=== PATIENT | male | born 1965 | race Caucasian/White ===

== ENCOUNTER → 2020-12-16 | Outpatient (CLI) | payer OTHER ==
--- NOTE | 2020-12-16 17:46 | CTL ---
EXAMINATION TYPE: CT Low Dose Lung DATE OF EXAM ORDERED: 12/16/2020 HISTORY: 55-year-old male Z87.891, personal history of tobacco use. Lung cancer screening CT DLP: 66.[address] CTDI: 1.8 mGy Automated exposure control for dose reduction was used. SCREENING VISIT: Baseline COMPARISON: None TECHNIQUE: Low dose computed tomography scan was performed through the chest at 1 mm thick sections a nd coronal/sagittal reconstructions. Additional coronal MIP reconstruction was performed. CT DIAGNOSTIC QUALITY: Satisfactory FINDINGS: Heart normal size without pericardial effusion. Aorta normal caliber with conventional arch vessel branching anatomy. Borderline size precarinal lymph node and 1.0 cm. Otherwise, no thoracic lymphadenopathy identified a llowing for noncontrast technique. Moderate paraseptal and centrilobular emphysema. Right greater than left biapical pleural parenchymal scarring. The scarring is confluence in irregular extending down to the medial aspect of the right u pper lobe. Moderate diffuse bronchial wall thickening. Otherwise, no suspicious pulmonary nodule elsewhere within the lungs. No consolidation or pleural eff usion. Visualized upper abdomen shows no gross abnormality. Bones: No osseous destructive process. IMPRESSION: 1. BI-RADS 3, probably benign. Asymmetric right greater than left biapical pleural parenchymal scarri ng. Opacity is more confluent and irregular on the right extending down into the medial aspect of the right upper lobe. All of this density is suspected to represent scarring. Six-month follow-up to exc lude an underlying developing mass. 2. COPD with moderate emphysema. CT LUNG RAD AND CT CHEST RECOMMENDATION: Lung-Rad 3 Probably Benign: 6 month follow-up LDCT.
== END | disposition home or self-care (01) ==
LOC: RADCTMAIN 15:36
DX: Z12.2 Encounter for screening for malignant neoplasm of respiratory organs (principal); J43.9 Emphysema, unspecified; R91.8 Other nonspecific abnormal finding of lung field; Z87.891 Personal history of nicotine dependence
CPT/HCPCS: 71271

== ENCOUNTER 2023-05-14 21:20 | Emergency (ER) | payer OTHER ==
[2023-05-15 02:24] LABS: Amphetamine Screen,Urine Not Detected (NotDetected); Barbiturate Screen,Urine Not Detected (NotDetected); Benzodiazepines Screen,Urine Not Detected (NotDetected); Cocaine Screen,Urine Not Detected (NotDetected); Methadone Screen, Urine Not Detected (NotDetected); Opiate Screen,Urine Not Detected (NotDetected); Oxycodone Screen, Urine Not Detected (NotDetected); Phencyclidine Screen,Urine Not Detected (NotDetected); Tricyclic Antidepressant,Urine Not Detected (NotDetected); Urn Cannabinoid Scrn Not Detected (NotDetected)
--- NOTE | 2023-05-15 02:42 | ED ---
Psych HPI - General Source: patient, EMS Mode of arrival: EMS <Kacie Oliva - Last Filed: 05/15/23 06:27> <Gómez Erickson - Last Filed: 05/16/23 14:19> - General Chief Complaint: Psychiatric Symptoms Stated Complaint: Mental Health Time Seen by Provider: 05/14/23 21:21 - History of Present Illness Initial Comments: 58-year-old male presents to the emergency department with report of depression. States that he has a bad relationship with his . Reports that he was charged with domestic violence and there has been a no contact order that was in place. He had been in group home for 20 days. Recently the patient was released in the no contact order was lifted. His was at the house tonight and the 2 were supposed to be reconciling the relationship. He found out that his is cheating on him and he became very angry. States that he wanted to destroy everything in the house. He denies assaulting her. States he wanted to leave the house via EMS before anything else occurred. He denies suicidal ideations. Denies drug or alcohol use today. Does admit to smoking marijuana and drinks once per week. He admits to being hospitalized once for his mental health back in September. At that time he had been suicidal. Patient denies hallucinations. No other alleviating, precipitating modifying factors (Kacie Oliva) - Related Data Home Medications Medication Instructions Recorded Confirmed Ketorolac 0.5% Ophth Soln [Acular 1 drops RIGHT EYE BID 05/15/23 05/15/23 0.5%] prednisoLONE ACETATE 1% OPHTH 1 drops RIGHT EYE BID 05/15/23 05/15/23 [Pred Forte 1%] Previous Rx's Medication Instructions Recorded Sertraline [Zoloft] 50 mg PO DAILY 3 Days #3 tab 05/16/23 Allergies Allergy/AdvReac Type Severity Reaction Status Date / Time No Known Allergies Allergy Verified 05/15/23 08:55 Review of Systems ROS Other: All systems not noted in ROS Statement are negative. <Kacie Oliva - Last Filed: 05/15/23 06:27> ROS Other: All systems not noted in ROS Statement are negative. <Gómez Erickson - Last Filed: 05/16/23 14:19> ROS Statement: Those systems with pertinent positive or pertinent negative responses have been documented in the HPI. Past Medical History Additional Past Medical History / Comment(s): PT STATES HAD PET SCAN ABOUT 4 YEARS AGO THAT SHOWED AREA IN LUNG, AND THEN FOLLOW UP CT SCANS THAT HAVE BEEN ABN. History of Any Multi-Drug Resistant Organisms: None Reported Past Surgical History: Hernia Repair Additional Past Surgical History / Comment(s): COLONOSCOPY. EGD Past Anesthesia/Blood Transfusion Reactions: No Reported Reaction Past Psychological History: Anxiety Smoking Status: Current every day smoker - Past Family History Mother Family Medical History: Unable to Obtain Additional Family Medical History / Comment(s): PT STATES FAMILY HX OF CANCER, NOT SURE WHICH FAMILY MEMBERS <Kacie Oliva - Last Filed: 05/15/23 06:27> General Exam Limitations: no limitations General appearance: alert, in no apparent distress Head exam: Present: atraumatic, normocephalic, normal inspection Eye exam: Present: normal appearance, PERRL, EOMI. Absent: scleral icterus, conjunctival injection, periorbital swelling ENT exam: Present: normal exam, mucous membranes moist Neck exam: Present: normal inspection. Absent: tenderness, meningismus, lymphadenopathy Respiratory exam: Present: normal lung sounds bilaterally. Absent: respiratory distress, wheezes, rales, rhonchi, stridor Cardiovascular Exam: Present: regular rate, normal rhythm, normal heart sounds. Absent: systolic murmur, diastolic murmur, rubs, gallop, clicks GI/Abdominal exam: Present: soft, normal bowel sounds. Absent: distended, tenderness, guarding, rebound, rigid Extremities exam: Present: normal inspection, full ROM, normal capillary refill. Absent: tenderness, pedal edema, joint swelling, calf tenderness Back exam: Present: normal inspection Neurological exam: Present: alert, oriented X3, CN II-XII intact Psychiatric exam: Present: normal affect, normal mood Skin exam: Present: warm, dry, intact, normal color. Absent: rash <Kacie Oliva Desi Whitmore Last Filed: 05/15/23 06:27> Course Vital Signs 05/14/23 05/15/23 05/15/23 21:21 02:00 18:06 Temperature 98 F 97.9 F Pulse Rate 85 70 59 L Respiratory 18 18 16 Rate Blood Pressure 125/82 122/70 102/69 O2 Sat by Pulse 96 98 94 L Oximetry 05/16/23 05/16/23 09:18 12:00 Temperature 98.2 F 98.1 F Pulse Rate 61 76 Respiratory 20 18 Rate Blood Pressure 102/69 119/74 O2 Sat by Pulse 95 98 Oximetry Medical Decision Making - Lab Data Result diagrams: 05/15/23 06:09 <Kacie Oliva - Last Filed: 05/15/23 06:27> - Lab Data Result diagrams: 05/15/23 06:09 05/15/23 06:09 <Gómez Erickson - Last Filed: 05/16/23 14:19> - Medical Decision Making Was pt. sent in by a medical professional or institution (, PA, BATTERY CONTAINER FINISHING HAND, urgent care, hospital, or care home...) When possible be specific @ -No Did you speak to anyone other than the patient for history (EMS, parent, family, police, friend...)? What history was obtained from this source @ -Spoke with EMS Did you review nursing and triage notes (agree or disagree)? Why? @ -I reviewed and agree with nursing and triage notes Were old charts reviewed (outside hosp., previous admission, EMS record, old EKG, old radiological studies, urgent care reports/EKG's, care home records)? Report findings @ -No old charts were reviewed Differential Diagnosis (chest pain, altered mental status, abdominal pain women, abdominal pain men, vaginal bleeding, weakness, fever, dyspnea, syncope, headache, dizziness, GI bleed, back pain, seizure, CVA, palpatations, mental health, musculoskeletal)? @ -Differential Mental Health Depression, anxiety, bipolar, psychosis, schizophrenia, borderline personality, situational depression, adjustment disorder, behavioral disorder, brain tumor, malingering, substance abuse, encephalopathy, medication reaction, dementia, hypothyroidism, degenerative neurologic disorder, lupus.... This is not meant to be all-inclusive list EKG interpreted by me (3pts min.). @ -Yes and demonstrate sinus rhythm with rate 64. NM interval 121. QRS 93. QTC of 394. No acute ST segment elevations or depressions X-rays interpreted by me (1pt min.). @ -None done CT interpreted by me (1pt min.). @ -None done U/S interpreted by me (1pt. min.). @ -None done What testing was considered but not performed or refused? (CT, X-rays, U/S, labs)? Why? @ -None What meds were considered but not given or refused? Why? @ -None Did you discuss the management of the patient with other professionals (professionals i.e. , PA, BATTERY CONTAINER FINISHING HAND, lab, RT, psych nurse, social media assistant, ethernet network architect, teacher, compliance officer, welfare case worker)? Give summary @ -Spoke with EPS in regards to the patient's symptoms Was smoking cessation discussed for >3mins.? @ -No Was critical care preformed (if so, how long)? @ -No Were there social determinants of health that impacted care today? How? (Homelessness, low income, unemployed, alcoholism, drug addiction, transportation, low edu. Level, literacy, decrease access to med. care, group home, rehab)? @ -Homelessness Was there de-escalation of care discussed even if they declined (Discuss DNR or withdrawal of care, Hospice)? DNR status @ -No What co-morbidities impacted this encounter? (DM, HTN, Smoking, COPD, CAD, Cancer, CVA, ARF, Chemo, Hep., AIDS, mental health diagnosis, sleep apnea, morbid obesity)? @ -Depression Was patient admitted / discharged? Hospital course, mention meds given and route, prescriptions, significant lab abnormalities, going to OR and other pertinent info. @ -Upon arrival patient was placed into room 9. Thorough history and physical exam was performed. Patient requires EPS evaluation. EPS does evaluate the patient and feels hospitalizations most appropriate due to hopelessness, depression. Certification as filled out by myself. Patient pending transfer at this time Undiagnosed new problem with uncertain prognosis? @ -No Drug Therapy requiring intensive monitoring for toxicity (Heparin, Nitro, Insulin, Cardizem)? @ -No Were any procedures done? @ -No Diagnosis/symptom? @ -acute depression Acute, or Chronic, or Acute on Chronic? @ -acute Uncomplicated (without systemic symptoms) or Complicated (systemic symptoms)? @ -complicated Side effects of treatment? @ -No Exacerbation, Progression, or Severe Exacerbation? @ -No Poses a threat to life or bodily function? How? (Chest pain, [place], [place], pneumonia, PE, COPD, DKA, ARF, appy, cholecystitis, CVA, Diverticulitis, Homicidal, Suicidal, threat to staff... and all critical care pts) @ -No (Kacie Oliva) Patient was originally evaluated by EPS and determined that he will be transferred for psych. However he says reviewed today by psychiatry as well as EPS. A negative surgical was completed. They believe patient is safe for discharge home. Not a danger to himself or others. I believe this is reasonable. He will be given a prescription for Zoloft. Dr. Grigsby psychiatry evaluated the patient at bedside and was in agreement with this plan. Diagnosis/symptom? @ -Depression Acute, or Chronic, or Acute on Chronic? @ -Acute Uncomplicated (without systemic symptoms) or Complicated (systemic symptoms)? @ -Uncomplicated Side effects of treatment? @ -none Exacerbation, Progression, or Severe Exacerbation] @ -no Poses a threat to life or bodily function? @ -Unlikely (Gómez Erickson) - Lab Data Lab Results 05/15/23 05/15/23 05/15/23 Range/Units 01:40 06:09 06:09 WBC 8.9 (3.8-10.6) k/uL RBC 4.40 (4.30-5.90) m/uL Hgb 14.0 (13.0-17.5) gm/dL Hct 41.9 (39.0-53.0) % MCV 95.3 (80.0-100.0) fL MCH 31.7 (25.0-35.0) pg MCHC 33.3 (31.0-37.0) g/dL RDW 13.9 (11.5-15.5) % Plt Count 266 (150-450) k/uL MPV 7.0 Neutrophils % 61 % Lymphocytes % 28 % Monocytes % 6 % Eosinophils % 3 % Basophils % 0 % Neutrophils # 5.4 (1.3-7.7) k/uL Lymphocytes # 2.5 (1.0-4.8) k/uL Monocytes # 0.5 (0-1.0) k/uL Eosinophils # 0.2 (0-0.7) k/uL Basophils # 0.0 (0-0.2) k/uL Sodium 137 (137-145) mmol/L Potassium 4.7 (3.5-5.1) mmol/L Chloride 106 (98-107) mmol/L Carbon Dioxide 24 (22-30) mmol/L Anion Gap 7 mmol/L BUN 16 (9-20) mg/dL Creatinine 0.85 (0.66-1.25) mg/dL Est GFR (CKD-EPI)AfAm >90 (>60 ml/min/1.73 sqM) Est GFR (CKD-EPI)NonAf >90 (>60 ml/min/1.73 sqM) Glucose 100 H (74-99) mg/dL Calcium 9.3 (8.4-10.2) mg/dL Total Bilirubin 0.6 (0.2-1.3) mg/dL AST 25 (17-59) U/L ALT 15 (4-49) U/L Alkaline Phosphatase 74 (38-126) U/L Total Protein 7.4 (6.3-8.2) g/dL Albumin 3.9 (3.5-5.0) g/dL Urine Opiates Screen Not Detected (NotDetected) Ur Oxycodone Screen Not Detected (NotDetected) Urine Methadone Screen Not Detected (NotDetected) Ur Propoxyphene Screen Not Detected (NotDetected) Ur Barbiturates Screen Not Detected (NotDetected) U Tricyclic Antidepress Not Detected (NotDetected) Ur Phencyclidine Scrn Not Detected (NotDetected) Ur Amphetamines Screen Not Detected (NotDetected) U Methamphetamines Scrn Not Detected (NotDetected) U Benzodiazepines Scrn Not Detected (NotDetected) Urine Cocaine Screen Not Detected (NotDetected) U Marijuana (THC) Screen Not Detected (NotDetected) Serum Alcohol <10 mg/dL Coronavirus (PCR) (Not Detectd) 05/15/23 Range/Units 06:09 WBC (3.8-10.6) k/uL RBC (4.30-5.90) m/uL Hgb (13.0-17.5) gm/dL Hct (39.0-53.0) % MCV (80.0-100.0) fL MCH (25.0-35.0) pg MCHC (31.0-37.0) g/dL RDW (11.5-15.5) % Plt Count (150-450) k/uL MPV Neutrophils % % Lymphocytes % % Monocytes % % Eosinophils % % Basophils % % Neutrophils # (1.3-7.7) k/uL Lymphocytes # (1.0-4.8) k/uL Monocytes # (0-1.0) k/uL Eosinophils # (0-0.7) k/uL Basophils # (0-0.2) k/uL Sodium (137-145) mmol/L Potassium (3.5-5.1) mmol/L Chloride (98-107) mmol/L Carbon Dioxide (22-30) mmol/L Anion Gap mmol/L BUN (9-20) mg/dL Creatinine (0.66-1.25) mg/dL Est GFR (CKD-EPI)AfAm (>60 ml/min/1.73 sqM) Est GFR (CKD-EPI)NonAf (>60 ml/min/1.73 sqM) Glucose (74-99) mg/dL Calcium (8.4-10.2) mg/dL Total Bilirubin (0.2-1.3) mg/dL AST (17-59) U/L ALT (4-49) U/L Alkaline Phosphatase (38-126) U/L Total Protein (6.3-8.2) g/dL Albumin (3.5-5.0) g/dL Urine Opiates Screen (NotDetected) Ur Oxycodone Screen (NotDetected) Urine Methadone Screen (NotDetected) Ur Propoxyphene Screen (NotDetected) Ur Barbiturates Screen (NotDetected) U Tricyclic Antidepress (NotDetected) Ur Phencyclidine Scrn (NotDetected) Ur Amphetamines Screen (NotDetected) U Methamphetamines Scrn (NotDetected) U Benzodiazepines Scrn (NotDetected) Urine Cocaine Screen (NotDetected) U Marijuana (THC) Screen (NotDetected) Serum Alcohol mg/dL Coronavirus (PCR) Not Detected (Not Detectd) Disposition Is patient prescribed a controlled substance at d/c from ED?: No Time of Disposition: 05:40 <Kacie Oliva - Last Filed: 05/15/23 06:27> Is patient prescribed a controlled substance at d/c from ED?: No Time of Disposition: 14:18 <Gómez Erickson - Last Filed: 05/16/23 14:19> Clinical Impression: Depression Disposition: HOME SELF-CARE Condition: Good Prescriptions: Sertraline [Zoloft] 50 mg PO DAILY 3 Days #3 tab Referrals: [facility],Clinic [Primary Care Provider] - 1-2 days
[2023-05-15 06:16] LABS: Basophils % (A) 0 %; Eosinophils # (A) 0.2 k/uL (0-0.7); Eosinophils % (A) 3 %; HCT 41.9 % (39.0-53.0); Lymphocytes # (A) 2.5 k/uL (1.0-4.8); Lymphocytes % (A) 28 %; MCH 31.7 pg (25.0-35.0); MCHC 33.3 g/dL (31.0-37.0); MCV 95.3 fL (80.0-100.0); Monocytes # (A) 0.5 k/uL (0-1.0); Monocytes % (A) 6 %; Neutrophils # (A) 5.4 k/uL (1.3-7.7); Neutrophils % (A) 61 %; Platelet Count 266 k/uL (150-450); RDW 13.9 % (11.5-15.5); WBC 8.9 k/uL (3.8-10.6)
[2023-05-15 06:45] LABS: ALT 15 U/L (4-49); AST 25 U/L (17-59); African American GFR (CKD) >90 (>60 ml/min/1.73 sqM); Albumin 3.9 g/dL (3.5-5.0); Alcohol <10 mg/dL; Alkaline Phosphatase 74 U/L (38-126); Anion Gap 7 mmol/L; Blood Urea Nitrogen 16 mg/dL (9-20); Calcium 9.3 mg/dL (8.4-10.2); Carbon Dioxide 24 mmol/L (22-30); Chloride 106 mmol/L (98-107); Glucose 100 mg/dL (74-99); Non-African American GFR(CKD) >90 (>60 ml/min/1.73 sqM); Potassium 4.7 mmol/L (3.5-5.1); Sodium 137 mmol/L (137-145); Total Bilirubin 0.6 mg/dL (0.2-1.3); Total Protein 7.4 g/dL (6.3-8.2)
[2023-05-15] MEDS: KETOROLAC 0.5% OPHTH DROPS 5 ML BTL RIGHT EYE SCH (20:05)
[2023-05-15] MEDS: prednisoLONE ACETATE 1% OPHTH DROPS 5 ML BTL RIGHT EYE SCH (20:08)
[2023-05-16] MEDS: KETOROLAC 0.5% OPHTH DROPS 5 ML BTL RIGHT EYE SCH (09:20)
[2023-05-16] MEDS: prednisoLONE ACETATE 1% OPHTH DROPS 5 ML BTL RIGHT EYE SCH (09:21)
[2023-05-16 12:18] VITALS: RESP 18; TEMP 98.1
[2023-05-16] MEDS ORDERED: SERTRALINE 50 MG TAB PO SCH (14:05)
--- NOTE | 2023-05-16 14:55 | P.CN ---
Psychiatric Consult - . Consult date: 05/16/23 Consult:: 05/16/23 13:27 IDENTIFYING DATA: This patient is a [] 58-year-old male, , with a house 1, has 1 child REASON FOR REFERRAL: Psychiatry was consulted for reevaluation HISTORY OF PRESENT ILLNESS: The patient presented to the hospital initially on 05/14. Patient was complaining of depression and relationship issues with his . He states that he was charged recently with domestic violence when the correction, there was a no contact order in place however and his began reconciling. She had the no contact order removed. Patient came to the hospital after an argument with his because he caught her on the phone with another man and she was cheating on him. He states that he cannot hospital because "I didn't want to tear up the house". Patient was initially petitioned and a cert was completed. pt was denied admission at the [facility] due to lack of criteria. Patient was seen today about agreeable sign writer hand. He states that he is having difficulties with his however wants to reconcile with her. He states that he was very upset and does not want have a divorce. She claims that there is no guns or weapons in the house. He states that he has not been able to contact his due to having his phone taken away. He says he states that he is depressed about the situation, does endorse some anxiety at times. We spoke about different treatment options which is taking Zoloft. He was fairly future oriented, denies any problems with sleep or appetite at this time. He was fairly focused on discharge . At this time patient denies any suicidal or homical ideations, intent or plan. Patient denies any auditory, visual hallucinations and denies any paranoia or delusions. Patients admits to using no recreational drugs or cigarettes. PAST PSYCHIATRIC HISTORY: Patient has a a history of depression and anxiety. [Patient denies being on any psychiatric medications.] He claimed that he was once psychiatrically admitted to the [facility] in September 2022. States that he does have a psychiatrist that he follows up with virtually at the [facility]. [Patient denies any history of suicide attempts in the past.] Additional Past Medical History / Comment(s): PT STATES HAD PET SCAN ABOUT 4 YEARS AGO THAT SHOWED AREA IN LUNG, AND THEN FOLLOW UP CT SCANS THAT HAVE BEEN ABN. History of Any Multi-Drug Resistant Organisms: None Reported Past Surgical History: Hernia Repair Additional Past Surgical History / Comment(s): COLONOSCOPY. EGD Past Anesthesia/Blood Transfusion Reactions: No Reported Reaction Past Psychological History: Anxiety Smoking Status: Current every day smoker ALLERGIES: as per EMR. CHEMICAL DEPENDENCY HISTORY: as per HPI. FAMILY PSYCHIATRIC/SUBSTANCE USE HISTORY: [denies] SOCIAL HISTORY: Patient was born and raised in [place]. He states that he completed high school and did some college, he served in the [employer] from 1987- 1992. He had an honorable discharge. He states that he did go to correction once in the past over does not remember what for. Claims he has 1 son is with his and 11 house. MENTAL STATUS EXAM: General Appearance: Patient appears to be stated age is thin, bald, alert, pleasant, and cooperative. Patient appears to have [fair] hygiene and grooming wearing hospital gown with [fair] eye contact. Behavior: [Patient is calmly lying in bed without any agitated behavior.] Speech: Patient's speech is fluent and nonpressured. Mood/Affect: Patient reports their mood is "[depressed sometimes but now okay]", affect is congruent Suicidality/Homicidality: Patient denies having any suicidal or homicidal ideation intent or plan. Perceptions: Patient denies any visual hallucinations [and denies any auditory hallucinations] Though content/process: There is no evidence of any delusional thought content and thought process is linear and goal-directed. Future oriented Memory and concentration: AOX3, grossly intact for the purposes of this session. Can spell "WORLD" backwards Judgment and insight: Fair IMPRESSIONS: Adjustment disorder with emotional conduct and Depressed mood Anxiety disorder unspecified marital issues PLAN: -At this time patient DOES [NOT] meet criteria for inpatient psychiatric admission. -Would recommend the following medication changes/additions: Patient is agreeable to try Zoloft 50 mg daily for mood/anxiety -Patient will follow-up at the [facility] and was also given information for follow-up at [facility] for mental health if needed. [-Communicated plan to patient's nurse] and eps nurse. -Bilingual Speech Therapist also spoke with patient's with his permission Joseph at [phone]. She spoke about her concerns about the patient with his mood and anxiety however she is agreeable to have him come back home and states that she wants to reconcile their marriage. She did confirm that there are no guns and weapons in the house. We spoke about medications [facility]. -Psychiatry will sign off at this time -Please contact with any questions. 05/16/23 14:47
[2023-05-16 15:00] VITALS: BP 131/78; PULSE 64
== END 2023-05-16 14:48 | disposition home or self-care (01) ==
LOC: EC 21:20
DX: F32.A Depression, unspecified (principal); F17.200 Nicotine dependence, unspecified, uncomplicated; Z20.822 Contact with and (suspected) exposure to COVID-19
CPT/HCPCS: 36415; 80053; 80306; 80320; 82075; 85025; 87635; 93005; 99285